=== PATIENT | female | born 1940 | race Caucasian/White ===

== ENCOUNTER 2018-01-30 20:51 | Emergency (ER) | payer OTHER, BC ==
[2018-01-30 21:00] VITALS: PULSE 82; TEMP 98.1; BMI 23.0
--- NOTE | 2018-01-30 21:02 | PDOC ---
History of Present Illness - History of Present Illness Initial Comments: 01/30/18 21:10 The patient is a 77 year old female, accompanied by son, with a significant past medical history of hypertension, anxiety, hypokalemia, who presents to the emergency department with, evaluation of high blood pressure. The patient reports she took her blood pressure on a home blood pressure device approx 1 hour ago and noted her bp was 172/72. The patient reports associated symptoms of nausea without emesis and headache. The patient states she came to the ED for evaluation of the high blood pressure. The patient reports taking her blood pressure medication Nadolol after noting her blood pressure was elevated. The patient states her blood pressure is normally around 140-150 systolic. She denies any recent chest pain, palpitations, shortness of breath, swelling or calf tenderness. She denies recent fevers, chills, or dizziness. She denies recent vomit, diarrhea or constipation. She denies recent dysuria, frequency, urgency or hematuria. PAST MEDICAL HISTORY: hypertension, anxiety, hypokalemia PAST SURGICAL HISTORY: no significant history FAMILY HISTORY: no pertinent history SOCIAL HISTORY: Pt lives with family. MEDICATIONS: reviewed ALLERGIES: As per nursing notes Review of Systems General: No fevers or chills, no weakness, no weight loss HEENT: No change in vision. No sore throat,. No ear pain CardioVascular: No chest pain or shortness of breath Respiratory: No cough, or wheezing. Gastrointestinal: +Nausea. No vomiting, diarrhea or constipation, No rectal bleeding Genitourinary: No dysuria, hematuria, or frequency Musculoskeletal: No joint or muscle pain or swelling Neurologic: +Headache. No vertigo, dizziness or loss of consciousness Psychiatric: nor depression Skin: No rashes or easy bruising Endocrine: no increased thirst or abnormal weight change Allergic: no skin or latex allergy All other systems reviewed and normal Physical Exams General: Well-nourished well-developed individual, no acute distress HEENT: Throat: Normal, tonsils normal, no erythema or exudate Neck: Supple, no meningeal signs, no lymphadenopathy Eyes::Pupils equal reactive and round, extraocular motion intact Chest: Nontender to palpation Cardiac: S1-S2 normal, regular rate and rhythm, no murmurs rubs or gallops Respiratory: Lungs clear to auscultation bilateral Abdomen: Soft, nondistended, normal bowel sounds, nontender to palpation diffusely Extremities: Warm, dry, no cyanosis, clubbing, or edema Skin: No rashes Neuro: Alert and oriented x3, nonfocal exam, grossly intact, normal gait Psych: Normal mood and affect <Jaxson Salas - Last Filed: 01/30/18 21:10> - General History Source: Patient Exam Limitations: No Limitations - History of Present Illness Initial Comments: A portion of this note was documented by scribe services under my direction. I have reviewed the details of the note, within reason, and agree with the documentation. The case summary and management plan written by me. Assessment and plan: This is a 77-year-old female who comes in complaining of hypertension. Patient is complaining of a mild headache. Patient otherwise has no complaints she denies any chest pain or shortness of breath. Patient was given an antianxiety medicine as she was very anxious and also her antihypertensive medications. 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)) HTN: Yes Hypercholesterolemia: Yes Thyroid Disease: Yes - Suicide/Smoking/Psychosocial Hx Smoking History: Never smoked Hx Alcohol Use: No Drug/Substance Use Hx: No Substance Use Type: None <Manjula Sahni I - Last Filed: 01/30/18 21:57> - Past Medical History Allergies/Adverse Reactions: Allergies Allergy/AdvReac Type Severity Reaction Status Date / Time codeine Allergy Verified 12/18/15 17:18 Home Medications: Ambulatory Orders Amlodipine Besylate [Norvasc -] 10 mg PO DAILY 12/18/15 Levothyroxine [Synthroid -] 50 mcg PO DAILY 12/18/15 Nadolol 20 mg PO Q2D 12/18/15 Simvastatin [Zocor -] 20 mg PO HS 12/18/15 Spironolactone 50 mg PO BID 12/18/15 Alprazolam [Xanax -] 0.25 mg PO DAILY PRN 01/30/18 Sodium Polystyrene Sulfonate [Kayexalate] 15 gm PO ASDIR 01/30/18 *Physical Exam - Vital Signs Last Vital Signs Temp Pulse Resp BP Pulse Ox 98.1 F 82 16 170/60 100 01/30/18 20:56 01/30/18 20:56 01/30/18 20:56 01/30/18 20:56 01/30/18 20:56 <Jaxson Salas - Last Filed: 01/30/18 21:10> - Vital Signs Last Vital Signs Temp Pulse Resp BP Pulse Ox 98.1 F 82 16 170/60 100 01/30/18 20:56 01/30/18 20:56 01/30/18 20:56 01/30/18 20:56 01/30/18 20:56 <Manjula Sahni I - Last Filed: 01/30/18 21:57> *DC/Admit/Observation/Transfer - Attestations Scribe Attestion: 01/30/18 21:10 Documentation prepared by Jaxson Salas, acting as vice president medical affairs for Manjula Sahni MD. <Jaxson Salas - Last Filed: 01/30/18 21:10> - Discharge Dispostion Admit: No <Manjula Sahni I - Last Filed: 01/30/18 21:57> Diagnosis at time of Disposition: Essential hypertension - Discharge Dispostion Disposition: HOME Condition at time of disposition: Stable - Referrals Referrals: Brock Almonte MD [Primary Care Provider] - - Patient Instructions Printed Discharge Instructions: DI for High Blood Pressure, How to Monitor Your Blood Pressure at Home Additional Instructions: Call your doctor Thursday morning and get an appointment to follow-up. Return to the emergency department immediately with ANY new, persistent or worsening symptoms. Continue any medications as previously prescribed by your physician. You should follow up with your primary doctor as soon as possible regarding today's emergency department visit. . Please make sure your doctor reviews the results of your emergency evaluation. Thank you for coming to the Emergency Department today for your care. It was a pleasure to see you today. Please note that your evaluation is INCOMPLETE until you follow-up with your doctor. - Post Discharge Activity
[2018-01-30] MEDS ORDERED: ALPRAZolam 1 MG TABLET PO PRN (21:07)
[2018-01-30] MEDS ORDERED: amLODIPine BESYLATE 10 MG TABLET (FP) PO ONE (21:07)
[2018-01-30] MEDS ORDERED: ACETAMINOPHEN 500 MG TABLET (FP) PO ONE (21:14)
[2018-01-30] MEDS ORDERED: ALPRAZolam 0.25 MG TABLET ONE (21:15)
[2018-01-30] MEDS ORDERED: amLODIPine BESYLATE 5 MG TABLET (FP) ONE ×2 (21:15→21:20)
[2018-01-30] MEDS ORDERED: ACETAMINOPHEN 325 MG TABLET (FP) ONE (21:15)
[2018-01-30] MEDS ORDERED: ACETAMINOPHEN 500 MG TABLET (FP) ONE (21:17)
[2018-01-30 22:00] VITALS: BP 115/57
== END 2018-01-30 22:03 | disposition home or self-care (01) ==
LOC: FER 20:51
DX: I10 Essential (primary) hypertension (principal); F41.9 Anxiety disorder, unspecified; E87.6 Hypokalemia
CPT/HCPCS: 99281-25

== ENCOUNTER 2024-09-23 14:53 | Emergency (ER) | payer OTHER, BC ==
[2024-09-23 15:16] VITALS: RESP 18; TEMP 97.5; BMI 23.9
[2024-09-23 15:49] LABS: HEMATOCRIT 37.1 % (32.4-45.2); HEMOGLOBIN 12.3 G/dL (10.7-15.3); MCH 28.7 pg (25.7-33.7); MCHC 33.1 g/dl (32.0-36.0); MEAN PLT VOLUME 8.1 fl (7.5-11.1); PLATELET COUNT 269.7 10^3/uL (134-434); RBC 4.27 10^6/uL (3.60-5.2); RDW 14.1 % (11.6-15.6); WHITE BLOOD COUNT 10.6 10^3/uL (4.0-10.8)
[2024-09-23 16:24] LABS: ALBUMIN 4.3 g/dl (3.4-5.0); BILIRUBIN,TOTAL 0.3 mg/dl (0.2-1); CALCIUM 9.8 mg/dl (8.5-10.1); CREATININE 1.1 mg/dl (0.6-1.3); POTASSIUM 3.7 mmol/L (3.5-5.1); TOT PROT 6.6 g/dl (6.4-8.2)
[2024-09-23 16:42] VITALS: BP 152/68; PULSE 71
[2024-09-23 16:59] LABS: PLATELET ESTIMATE ADEQUATE
== END 2024-09-23 18:40 | disposition home or self-care (01) ==
LOC: FER 14:53
DX: R51.9 Headache, unspecified (principal); I10 Essential (primary) hypertension; R11.0 Nausea; R42 Dizziness and giddiness
CPT/HCPCS: 36415; 70450-TC; 71046-TC-FY; 80053; 81003; 84484; 85027; 87086; 93005; 99285-25